=== PATIENT | male | born 1960 | race Caucasian/White ===

== ENCOUNTER → 2016-06-13 | Outpatient (CLI) | payer OTHER ==
[~2016-06-13] MED LIST: IOHEXOL 300 MG/ML 100ml INJECTION ONE; NORMAL SALINE 100 ML ONE; SALINE FLUSH 10ml SYRINGE ONE
--- NOTE | 2016-06-13 15:33 | DI ---
Indication: ITS.REASON: R31.29 Other microscopic hematuria PROCEDURE: CT RENAL W/WO CONTRAST: Encounter: Initial Comparison: None Technique: Axial CT images were performed through the abdomen and pelvis before and after the administration of intravenous contrast. Delayed postcontrast images were also performed. Coronal and sagittal 2-dimensional reformats. Automated Exposure Control and Iterative Reconstruction dose reducing techniques were utilized. Contrast: Omnipaque 300 100 mL Findings: The lung bases are clear. There are no suspicious pulmonary nodules or masses. The heart size is within normal limits. The liver is homogenous. There are no focal hepatic lesions. The liver is enlarged measuring 19.3 cm. The spleen is enlarged measuring 13 cm craniocaudally. The pancreas is unremarkable. The gallbladder is normal. The adrenal glands are normal. The right and left kidneys are within normal limits without hydronephrosis, obstructing calculus, or mass. There is a simple cyst involving the lower pole of the right kidney. The distal ureters are unremarkable. The bowel loops are normal caliber. No evidence for bowel obstruction. There is diverticulosis without evidence for acute or radiculitis. There is no abdominal pelvic lymphadenopathy or ascites. There is a small fat-containing left inguinal hernia. The bladder is normal. The prostate is mildly enlarged. There is mild spondylosis of the thoracolumbar spine. No suspicious or destructive osseous lesions. Impression: 1. Mild hepatosplenomegaly. 2. Small simple cyst involving the lower pole the right kidney. The kidneys are otherwise unremarkable without nephrolithiasis or hydronephrosis. 3. Small fat-containing left inguinal hernia. 4. The prostate is mildly enlarged. .
== END ==
LOC: IMA.MDS 14:11
PROVIDERS: ATTEND Specialist
DX: R31.29 Other microscopic hematuria (principal); K40.90 Unilateral inguinal hernia, without obstruction or gangrene, not specified as recurrent; N40.0 Benign prostatic hyperplasia without lower urinary tract symptoms; N28.1 Cyst of kidney, acquired; R16.2 Hepatomegaly with splenomegaly, not elsewhere classified